=== PATIENT | female | born 1955 | race Caucasian/White ===

== ENCOUNTER 2017-09-07 19:19 | Emergency (ER) | payer OTHER ==
[~2017-09-07] VITALS: Ht 167.6 cm; Wt 95.3 kg
[2017-09-07 19:21] VITALS: BP 175/97
[2017-09-07] MEDS ORDERED: DIPH,PERTUSS(ACELL),TET VAC/PF 0.5 ML IM-VACC ONE ×2 (19:30→20:18)
[2017-09-07] MEDS ORDERED: IBUPROFEN 200 MG TABLET ONE (20:18)
[2017-09-07] MEDS ORDERED: IBUPROFEN 200 MG TABLET PO ONE (20:30)
== END 2017-09-07 21:10 | disposition home or self-care (01) ==
LOC: ED 21:00
DX: S62.343A Nondisplaced fracture of base of third metacarpal bone, left hand, initial encounter for closed fracture (principal); S61.412A Laceration without foreign body of left hand, initial encounter; W10.9XXA Fall (on) (from) unspecified stairs and steps, initial encounter; Y93.89 Activity, other specified; Y99.8 Other external cause status; Y92.89 Other specified places as the place of occurrence of the external cause
CPT/HCPCS: 29125; 90471; 90715